=== PATIENT | female | born 1990 | race Caucasian/White ===

== ENCOUNTER 2024-04-18 05:40 | Inpatient (IN) ==
--- NOTE | 2024-04-06 11:59 | Anesthesiology Consultation ---
Date of Service April 06, 2024 Assessment & Plan (1) Encounter for pre-operative examination: Infectious disease screening: Per assessment on 04/06/24: No known infectious disease contacts or current infectious disease symptoms. No noted recent Covid positive test result. Chart Review Chart Review: entry level accountant initiated History Surgery Operation Date: 04/18/24 08:45 Proposed Procedures p Section in LD (Delivery of Baby through Abdominal Incision ) - Mckenzie Hernandez MD, FACOG Height/Weight Height: 5 ft 11 in Weight: 90.718 kg Allergies Allergy/AdvReac Type Severity Reaction Status Date / Time No Known Allergies Allergy Verified 04/06/24 11:17 Medications Home Medications Medication Instructions Recorded Confirmed Last Taken insulin lispro 100 unit/mL 20 unit subcut QAM 10/18/21 04/06/24 03/25/22 subcutaneous pen (Humalog KwikPen (U-100) Insulin) acetone (urine) test (Ketostix #25 ea 06/23/22 04/01/24 Unknown strips) omalizumab 150 mg/mL subcutaneous 300 mg (2 mL) subcut .COMPLEX #2 mL 04/22/23 04/06/24 Unknown syringe (Xolair) Omnipod 5 G6 Intro Kit (Gen 5) #1 ea 05/15/23 04/01/24 Unknown subcutaneous cartridge with controller (insulin pump cart,auto,BT-cntr) Omnipod 5 G6 Intro Kit (Gen 5) #1 ea 05/15/23 04/01/24 Unknown subcutaneous cartridge with controller (insulin pump cart,auto,BT-cntr) docosahexaenoic acid 200 mg 1 mg PO QAM 09/01/23 04/06/24 10/27/23 capsule ( DHA) aspirin 81 mg capsule 81 mg PO QAM 10/23/23 04/06/24 10/27/23 insulin lispro 100 unit/mL See Rx Instructions subcut 12/25/23 04/06/24 Unknown subcutaneous solution (Humalog CONTINOUS #100 mL U-100 Insulin) Omnipod 5 G6 Pods (Gen 5) (insulin #45 ea 12/31/23 04/01/24 Unknown pump cart,automated,BT) Dexcom G6 Sensor (blood-glucose #9 ea 01/22/24 04/01/24 Unknown sensor) Dexcom G6 Transmitter #1 ea 01/22/24 04/01/24 Unknown (blood-glucose transmitter) insulin glargine 100 unit/mL (3 25 unit (0.25 mL) subcut QPM #15 mL 01/22/24 04/06/24 Unknown mL) subcutaneous pen (Lantus Solostar U-100 Insulin) pen needle, diabetic 32 gauge x #100 ea 01/28/24 04/01/24 Unknown 5/32" (BD Ultra-Fine Melly Pen Needle) cetirizine 10 mg capsule (Zyrtec) 10 mg PO QID hives 04/06/24 04/06/24 Unknown Past Medical History Medical History Chronic idiopathic urticaria Reason for Zyrtec qid + Xolair Diabetes mellitus type 1 Dyslipidemia History of epilepsy Childhood Seizure hx ages 9-14 Hx of hepatitis Type A, no further details per PAT RN interview Insulin pump in place Past Family History Family History Father Hypertension Other No family history of adverse response to anesthesia Denies family history of Ovarian cancer Breast cancer Colorectal cancer Past Surgical History Surgical History H/O wisdom tooth extraction History of tonsillectomy Hx of oral surgery (10/28/23) Left Lower Lip Excision Large Mucocele and Ulcer Social History Smoking Status: Never smoker Do You Dip or Chew Tobacco: No Hx Alcohol Use: No Alcohol type: wine substance use type: does not use Lab Results Anesthesia Preop Results Results Anesthesia Widget: Hgb 12.5 g/dl (12.0-16.0) 02/10/24 Hct 36.2 % (37.0-47.0) L 02/10/24 TSH 0.757 uIu/ml (0.300-4.500) 02/19/24 HA1c 5.8 % (4.5-5.6) H 02/19/24 Urine Color Yellow 02/10/24 Urine Appearance Clear (Clear) 02/10/24 Urine pH 7.0 (4.5-7.5) 02/10/24 Urine Specific [place] 1.006 (1.000-1.030) 02/10/24 Urine Protein Negative (Negative) 02/10/24 Urine Glucose (UA) Negative (Negative) 02/10/24 Urine Ketones Negative (Negative) 02/10/24 Urine Blood Negative (Negative) 02/10/24 Urine Nitrite Negative (Negative) 02/10/24 Urine Bilirubin Negative (Negative) 02/10/24 Urine Urobilinogen Negative (Negative) 02/10/24 Urine Leukocyte Esterase Negative (Negative) 02/10/24 Testing Electrocardiogram Date: 11/13/23 Findings: + NSR @ (70)
--- NOTE | 2024-04-15 09:35 | History & Physical Report ---
Date of Service April 15, 2024 Assessment & Plan (1) with 39 completed weeks gestation: (2) Breech presentation: (3) Type 1 diabetes mellitus affecting , antepartum: Plan STill breech. Plan primary c/s. The risks of surgery were discussed with the patient including the risks of anesthesia, bleeding requiring transfusion, infection, poor wound healing, urinary retention, damage to surrounding structures including bowels, bladder, vessels, nerves and ureters that may require further surgery, hospitalization or intervention, injury to baby. The other risks of any surgery were discussed including heart attack, blood clots, stroke or . Consent reviewed and signed. Questions asked and answered. Surgery planned for Wednesday 04/18. History of Present Illness Chief Complaint: breech Primary Care Provider: Ester Fiore Patient is a 34yowf at 39 0/7 weeks who presents for primary c/s for breech presentation. She feels well. NO labor sx. Goof fm. STill breech when in the office on Thursday for consenting visit. Visit ASPEN Calculator Estimated Delivery Date Method Current WG Current Estimate 04/25/24 LMP (Certain) 37w 4d Other Estimates 04/25/24 Ultrasound #1 37w 4d and Delivery Plans DM Protocol - Type 1 *Baby ASA daily, start 12-28wks, continue until del *Ophthalmology consult *Dietary consult *Qmonthly urine cultures * [id number] 02/17/24---normal *Twice weekly NST's @32 or 34wks *Serial Growth US starting 28wks *EKG (Cardio x4287) - wnl *Deliver by EDC *Baseline 24hr urine and qmonth---03/03 <240 2.7cm TEX fibroid at anatomy -recheck 32 wks BREECH PRESENTATION C/S SCHEDULED FOR 04/18/[address] ROSE OB Labs: Blood Type B Positive 10/15/23 Antibody Screen NEGATIVE 10/15/23 Hemoglobin 12.5 g/dl (12.0-16.0) 02/10/24 Hematocrit 36.2 % (37.0-47.0) L 02/10/24 Mean Corpuscular Volume 84.3 fL (80.0-100.0) 09/14/23 Platelet Count 220 K/uL (130-400) 09/14/23 Rubella IgG Antibody Immune (Immune) 10/15/23 Rapid Plasma Reagin Nonreactive (Nonreactive) 10/15/23 Hepatitis B Surface Antigen. NON-REACTIVE (NON-REACTIVE) 09/14/23 Hepatitis C Antibody (EIA) NON-REACTIVE (NON-REACTIVE) 10/15/23 HIV (1&2) Ag and Ab Confirmation NON-REACTIVE (NON-REACTIVE) 10/15/23 Maternal Serum Alpha Fetoprotein 35.0 ng/mL 11/13/23 OB Optional Labs: Chlamydia trachomatis RNA Not Detected (NotDetected) 09/14/23 Neisseria gonorrhoeae RNA Not Detected (NotDetected) 09/14/23 Thyroid Stimulating Hormone (TSH) 0.757 uIu/ml (0.300-4.500) 02/19/24 Alpha Fetoprotein Triple Screen SEE NOTE 11/13/23 Labs Reviewed: low risk cfdna - sln afp neg gbs neg Allergies Allergy/AdvReac Type Severity Reaction Status Date / Time No Known Allergies Allergy Verified 04/15/24 10:53 Home Medications Medication Instructions Recorded Confirmed Type insulin lispro 100 unit/mL 20 unit subcut QAM 10/18/21 04/15/24 History subcutaneous pen (Humalog KwikPen (U-100) Insulin) acetone (urine) test (Ketostix #25 ea 06/23/22 04/15/24 Rx strips) omalizumab 150 mg/mL subcutaneous 300 mg (2 mL) subcut .COMPLEX #2 mL 04/22/23 04/15/24 Rx syringe (Xolair) Omnipod 5 G6 Intro Kit (Gen 5) #1 ea 05/15/23 04/15/24 Rx subcutaneous cartridge with controller (insulin pump cart,auto,BT-cntr) Omnipod 5 G6 Intro Kit (Gen 5) #1 ea 05/15/23 04/15/24 Rx subcutaneous cartridge with controller (insulin pump cart,auto,BT-cntr) docosahexaenoic acid 200 mg 1 mg PO QAM 09/01/23 04/15/24 History capsule ( DHA) aspirin 81 mg capsule 81 mg PO QAM 10/23/23 04/15/24 History insulin lispro 100 unit/mL See Rx Instructions subcut 12/25/23 04/15/24 Rx subcutaneous solution (Humalog CONTINOUS #100 mL U-100 Insulin) Omnipod 5 G6 Pods (Gen 5) (insulin #45 ea 12/31/23 04/15/24 Rx pump cart,automated,BT) Dexcom G6 Sensor (blood-glucose #9 ea 01/22/24 04/15/24 Rx sensor) Dexcom G6 Transmitter #1 ea 01/22/24 04/15/24 Rx (blood-glucose transmitter) insulin glargine 100 unit/mL (3 25 unit (0.25 mL) subcut QPM #15 mL 01/22/24 04/15/24 Rx mL) subcutaneous pen (Lantus Solostar U-100 Insulin) pen needle, diabetic 32 gauge x #100 ea 01/28/24 04/15/24 Rx " (BD Ultra-Fine Melly Pen Needle) cetirizine 10 mg capsule (Zyrtec) 10 mg PO QID hives 04/06/24 04/15/24 History Patient History Medical History Hx of hepatitis Type A, no further details per PAT RN interview Chronic idiopathic urticaria Reason for Zyrtec qid + Xolair Diabetes mellitus type 1 Dyslipidemia History of epilepsy Childhood Seizure hx ages 10-[address] Surgical History Hx of oral surgery (10/28/23) Left Lower Lip Excision Large Mucocele and Ulcer History of tonsillectomy H/O wisdom tooth extraction Family History Father Hypertension Other No family history of adverse response to anesthesia Denies family history of Ovarian cancer Breast cancer Colorectal cancer Social History Smoking Status: Never smoker Second Hand Exposure: Yes (in the past); Do You Dip or Chew Tobacco: No; Hx Alcohol Use: No Preferred Language: French Communication Ability: Effective Furnace Clerk Required: No Beliefs That Will Affect Care: None marital status: marital status details: Josemanuel Morel (34) [phone] Current Living Situation: Spouse Current Living Situation Comment: lives with spouse, dog current occupational status: employed current occupation: 2 [employer]-works from home Feels Safe at Home: Yes Diet: vegetarian during the past year weight has: remained stable Assistive Devices: None Physical Exam Constitutional: WD/WN, vitals as above Gastrointestinal (Abdomen): soft, gravid, nt Psychiatric: A+Ox3, euthymic affect Coding Level of Care Code None Diagnoses with 39 completed weeks gestation Z3A.39 Breech presentation, single or unspecified fetus O32.1XX0 Fetus number: single or unspecified fetus Type 1 diabetes mellitus affecting , antepartum O24.019 (2) Breech presentation Fetus number: single or unspecified fetus Qualified Code(s): O32.1XX0 - Maternal care for breech presentation, not applicable or unspecified
[~2024-04-18 05:40] MED LIST: ceFAZolin 2000MG 2,000 MG/15 ML SYR IV ONE
[2024-04-18] MEDS ORDERED: LACTATED RINGER'S 1,000 ML IV SCH ×2 (05:45→08:45)
[2024-04-18 06:07] LABS: Basophils # (auto) 0.02 K/uL (0.00-0.20); Basophils % (auto) 0.2 %; Eosinophils # (auto) 0.09 K/uL (0.00-0.50); Hematocrit (blood only) 33.8 % (37.0-47.0); Hemoglobin 11.7 g/dl (12.0-16.0); Immature Granulocytes # (auto) 0.04 K/uL (0.01-0.20); Immature Granulocytes % (auto) 0.4 %; Lymphocytes # (auto) 1.96 K/uL (1.20-3.40); Lymphocytes % (auto) 20.8 %; Mean Corpuscular Hemoglobin 29.2 pg (25.0-34.0); Mean Corpuscular Hgb Conc 34.6 g/dL (32.0-36.0); Mean Corpuscular Volume 84.3 fL (80.0-100.0); Mean Platelet Volume 10.7 fL (9.4-12.4); Monocytes # (auto) 0.35 K/uL (0.11-0.59); Monocytes % (auto) 3.7 %; Neutrophils # (auto) 6.96 K/uL (1.40-6.50); Neutrophils % (auto) 73.9 %; Platelet Count 178 K/uL (130-400); RDW Coefficient of Variation 13.2 % (11.5-14.5); RDW Standard Deviation 40.3 fL (36.4-46.3); Red Blood Count 4.01 M/uL (4.20-5.40); White Blood Count 9.42 K/ul (4.8-10.8)
--- NOTE | 2024-04-18 07:17 | History & Physical Bridge Note ---
Date of Service April 18, 2024 History & Physical Bridge Note I have examined the patient, reviewed the History & Physical and in the interval since the performance of the History & Physical I have noted the following changes of clinical significance: no changes noted, scanned this am and still breech.
[2024-04-18] MEDS ORDERED: MoRPHine SULFATE PF 1 MG/ML 10 ML AMP/VIAL ONE (07:20)
[2024-04-18] MEDS: ceFAZolin 2000MG 2,000 MG/15 ML SYR IV SCH (07:24)
[2024-04-18] MEDS ORDERED: KETOROLAC 30 MG/ML VIAL ONE (08:05)
[2024-04-18] MEDS ORDERED: ONDANSETRON INJ 2 MG/ML 2 ML VIAL ONE (08:05)
[2024-04-18] MEDS ORDERED: PHENYLEPHRINE HCL 25 MG/250 ML NSS IV ONE (08:05)
[2024-04-18] MEDS ORDERED: OXYTOCIN 10 UNITS/ML VIAL ONE (08:05)
[2024-04-18 08:23] LABS: Base Excess Cord Venous Blood -1.1 mEq/L (-7.7-1.9); Cord Venous Blood HCO3 25 mmol/L (18.4-26.8); Cord Venous Blood PCO2 48 mmHg (30.4-57.2); Cord Venous Blood PO2 24 mmHg (14.1-43.3); Cord Venous Blood pH 7.33 (7.20-7.44); O2 Saturation Cord Venous Bld < 60.0 % (<68)
[2024-04-18 08:24] LABS: Base Excess Cord Arterial Bld -3.2 mEq/L (-9-1.8); CO2 Cord Arterial Blood 77 mmHg (39.1-73.5); HCO3 Cord Arterial Blood 27 mmol/L (19.7-28.5); Oxygen Sat Cord Arterial Blood < 60.0 % (<60); PO2 Cord Arterial Blood < 20 mmHg (4.1-31.7); pH Cord Arterial Blood 7.16 (7.1-7.38)
--- NOTE | 2024-04-18 08:35 | Operative Report ---
PG Post Operative Report Pre & Post Diagnosis Operation Date: 04/18/24 07:30 Pre-Op Diagnosis: at 39 weeks, BREECH PRESENTATION Post-Op Diagnosis: at 39 weeks, BREECH PRESENTATION I identified the patient and participated in the time-out.: Yes Procedure Operation Date: 04/18/24 07:30 Actual Procedures p Primary low transverse Section; delivery of live female at 0755 - Mckenzie Hernandez MD, FACOG Surgeon Mckenzie Hernandez MD, FACOG Form Setter Lucy Cochran, MS 2 Estimated Blood Loss 880 Findings Consistent with Post-Op Diagnosis normal appearing uterus, tubes and ovaries, fetus in sharon breech presentation. Fluids 1200cc ivf 450cc clear yellow urine Specimens none Drains Capps Anesthesia Type Spinal Complications none Disposition Accompanied Patient To Recovery: Yes Disposition: L&D Indications Patient is a 34yowf with breech presentation at term. Description of Procedure The patient was taken to the operating room where she was identified verbally and by bracelet. She was seated on the operating table where a spinal anesthetic was placed by anesthesia. She was then placed in the supine position with a leftward tilt. A Capps catheter was placed sterilely. the patient was prepped and draped in a normal standard fashion. the anesthetic was tested and found to be adequate. A time-out was held, identifying correct patient, procedure, positioning and preoperative antibiotics. There were no concerns. A Pfannenstiel skin incision was made with a knife and taken down to the underlying layer of fascia with the knife and Bovie electrocautery. Bleeding was attended to with the Bovie. The fascia was incised in the midline with the knife and taken out laterally with scissors. The superior edge of the fascial incision was grasped, elevated and the underlying layer of rectus muscle was taken off bluntly and with scissors. In a similar fashion, the inferior edge of the fascial incision was grasped, elevated and the underlying layer of rectus muscle was taken off bluntly and with scissors. The muscles were bluntly in the midline. The peritoneum was entered bluntly. The incision was then stretched. The bladder blade was placed. The vesicouterine peritoneum was identified, entered with scissors and taken out laterally with scissors. The bladder flap was created digitally A hysterotomy incision was scored with a knife and the incision was stretched superiorly and inferiorly with the dictaphone operator's fingers. The operators hand was placed into the incision and the buttocks were partially delivered. We had difficulty delivering them and so the bandage scissors were used to increase the size of the incision. then the buttocks were delivered. The legs were then delivered. The arms were then delivered by sweeping across the body. The head was then delivered by fundal pressure. No nuchal cord. The nose and mouth were bulb suctioned. The cord was clamped and cut and the was then handed off to the awaiting front office manager for drying and attention. Cord blood and segment were obtained. The placenta was expressed. The uterus was exteriorized and cleared of all clot and debris with moistened laparotomy sponges. The hysterotomy incision was repaired in two layers, the first in a running locked layer, the second in an imbricating layer. Hemostasis was noted to be good. Posterior cul-de-sac was irrigated and cleared of all clot and debris. The hysterotomy incision was again inspected and found to be hemostatic. the uterus was reinteriorized. Hysterotomy incision was again inspected and two figure of eight sutures were needed for hemostasis . It was then noted to be excellent. The fascia was then reapproximated with 0 Vicryl starting at the edges and meeting in the midline. The subcuticular tissues were copiously irrigated and bleeding was attended to with cautery. The skin was then closed with 4-0 Vicryl in a subcuticular fashion. All sponge , lap and needle counts were correct x 2. The patient was then taken to recovery in stable condition. I attest to the content of the Intraoperative Record and any orders documented therein. Any exceptions are noted below. OB Procedure Charges 69538
[2024-04-18] MEDS ORDERED: NALOXONE HCL 0.4 MG/1 ML VIAL/CARP IV PRN (08:37)
[2024-04-18] MEDS ORDERED: ePHEDrine sulfate 50 MG/ML AMP IV PRN (08:37)
[2024-04-18] MEDS ORDERED: HYDROCORTISONE ACETATE 25 MG SUPP PR PRN (08:37)
[2024-04-18] MEDS ORDERED: diphenhydrAMINE 50 MG/ML VIAL IV PRN ×2 (08:37)
[2024-04-18] MEDS ORDERED: DIPHTHER/TETAN/PERTUS Vaccine (Tdap, Adol/Adult) 0.5mL IM ONE (08:37)
[2024-04-18] MEDS ORDERED: NALOXONE HCL 1 MG in SODIUM CHLORIDE 0.9% 1,000 ML IV PRN (08:37)
[2024-04-18] MEDS ORDERED: NALOXONE HCL 0.08 MG in SYRINGE 1.8 ML IV PRN (08:37)
[2024-04-18] MEDS ORDERED: ONDANSETRON INJ 2 MG/ML 2 ML VIAL IV PRN (08:37)
[2024-04-18] MEDS ORDERED: NALBUPHINE HCL 5 MG in SYRINGE 0 ML IV PRN (08:37)
[2024-04-18] MEDS ORDERED: PROMETHAZINE HCL 25 MG in SODIUM CHLORIDE 0.9% 50 ML IV PRN (08:37)
[2024-04-18] MEDS ORDERED: BENZOCAINE 20% SPRY 85 APPLN/85 GM CAN EXT PRN (08:37)
[2024-04-18] MEDS ORDERED: MEPERIDINE HCL 50 MG/ML CARP IV PRN (08:37)
[2024-04-18] MEDS ORDERED: diphenhydrAMINE Capsule 25 MG CAP PO PRN (08:37)
[2024-04-18] MEDS ORDERED: SENNA 8.6 MG TAB PO PRN (08:37)
[2024-04-18] MEDS ORDERED: LACTATED RINGER'S 500 ML IV PRN (08:37)
[2024-04-18] MEDS ORDERED: MAGNESIUM HYDROXIDE SUSP 30 ML UDC PO PRN (08:37)
[2024-04-18] MEDS ORDERED: MEPERIDINE HCL 25 MG/ML CARP/VIAL IV PRN (08:37)
[2024-04-18] MEDS ORDERED: HYDROmorphone INJ 0.5 MG/0.5 ML SYR IV PRN (08:37)
[2024-04-18] MEDS ORDERED: MoRPHine SULFATE 2 MG/ML CARP IV PRN (08:37)
[2024-04-18] MEDS ORDERED: NO NARCOTICS OR SEDATIVES SCH (08:45)
[2024-04-18] MEDS ORDERED: DC INTRASPINAL MORPHINE SCH (08:45)
[2024-04-18] MEDS ORDERED: NON-FORMULARY MEDICATION (Blood-Glucose Sensor [Dexcom G6 Sensor] device) SCH (08:52)
[2024-04-18] MEDS ORDERED: NON-FORMULARY MEDICATION (Insulin Lispro [Humalog U-100 Insulin] 100 unit/mL solution) SQ SCH (08:52)
[2024-04-18] MEDS ORDERED: [UNRECOGNIZED DRUG - OTHER] SCH (08:52)
[2024-04-18] MEDS ORDERED: INSULIN PUMP CART AUTOMATED BT SCH (08:52)
[2024-04-18] MEDS ORDERED: [UNRECOGNIZED DRUG - OTHER] SCH ×2 (08:52)
[2024-04-18] MEDS ORDERED: NON-FORMULARY MEDICATION (Insulin Lispro [Humalog Kwikpen Insulin] 100 unit/mL insulin pen SQ SCH (09:00)
[2024-04-18] MEDS ORDERED: INSULIN ASPART 100 UNITS/ML VIAL SC PRN (09:30)
[2024-04-18] MEDS ORDERED: Continuous Glucose Monitor SCH (09:30)
--- NOTE | 2024-04-18 10:07 | Anesthesiology Progress Note ---
Date of Service April 18, 2024 Anesthesia Post Procedure Vital Signs Vital Signs: Temp Pulse Resp BP Pulse Ox 04/18/24 10:00 64 98 04/18/24 09:59 63 117/74 04/18/24 09:55 69 98 04/18/24 09:50 69 98 04/18/24 09:49 68 117/73 04/18/24 09:45 68 98 04/18/24 09:40 74 97 04/18/24 09:39 68 112/75 04/18/24 09:35 70 98 04/18/24 09:30 18 04/18/24 09:30 18 04/18/24 09:30 70 97 04/18/24 09:29 68 122/74 04/18/24 09:25 68 97 04/18/24 09:21 18 04/18/24 09:20 67 97 04/18/24 09:19 65 114/57 L 04/18/24 09:15 70 97 04/18/24 09:10 18 04/18/24 09:10 71 98 04/18/24 09:09 72 116/71 04/18/24 09:05 67 98 04/18/24 09:00 18 04/18/24 09:00 64 98 04/18/24 08:59 68 108/67 04/18/24 08:55 64 98 04/18/24 08:50 20 04/18/24 08:50 62 115/61 97 04/18/24 08:45 73 97 04/18/24 08:40 18 04/18/24 08:40 69 98 04/18/24 08:39 66 100/56 L 04/18/24 08:35 70 85 L 04/18/24 08:34 66 94 04/18/24 08:30 36.5 C 18 04/18/24 08:29 95 04/18/24 08:29 62 04/18/24 08:29 61 97/54 L 04/18/24 06:07 95 H 129/70 04/18/24 06:00 36.7 C 04/18/24 05:54 36.7 C 18 Transfer of Care Handoff Completed per policy Notes Mental Status: alert / awake / arousable Nausea / Vomiting: adequately controlled Pain: adequately controlled Airway Patency, RR, SpO2: stable & adequate BP & HR: stable & adequate Hydration State: stable & adequate Neuraxial Anesthesia: was administered and sensory block is resolving Anesthetic Complications: no major complications apparent and Pt Satisfied with anesthetic care
[2024-04-18] MEDS: OXYTOCIN 20 UNITS/LR 1,002 ML IV SCH (10:14)
[2024-04-18] MEDS: CITRIC ACID/SODIUM CITRATE 15 ML UDC PO SCH (10:51)
[2024-04-18] MEDS ORDERED: INSULIN, Rapid-Acting PUMP SCH (11:30)
[2024-04-18] MEDS: ONDANSETRON INJ 2 MG/ML 2 ML VIAL IV PRN (11:46)
[2024-04-18] MEDS: SIMETHICONE 80 MG CHEW PO SCH (13:16)
[2024-04-18] MEDS: PROMETHAZINE HCL 6.25 MG in SODIUM CHLORIDE 0.9% 50 ML IV PRN (13:42)
[2024-04-18] MEDS: SODIUM CHLORIDE 0.9% 1,000 ML IV SCH (18:09)
[2024-04-18] MEDS: MoRPHine SULFATE PF 1 MG/ML 10 ML AMP/VIAL INT SPINAL ONE (18:09)
[2024-04-18] MEDS: KETOROLAC 30 MG/ML VIAL IV PRN (18:37)
[2024-04-18] MEDS ORDERED: LANTUS PER UNIT CHARGE SC PRN (21:00)
[2024-04-18] MEDS: DOCUSATE SODIUM 100 MG CAP PO SCH (21:52)
[2024-04-19] MEDS ORDERED: KETOROLAC 30 MG/ML VIAL IV PRN (02:37)
[2024-04-19] MEDS: oxyCODONE/ACETAMINOPHEN 5mg/325mg TAB PO PRN (05:46)
--- NOTE | 2024-04-19 05:50 | Obstetrical Progress Note ---
Date of Service April 19, 2024 Assessment & Plan (1) Encounter for care and examination after delivery: Plan 34 y/o POD #1 s/p feels well today Encourage ambulation Vial signs reviewed Pain control Encourage Rubella immune, BGT: B+ Continue routine post care Admission and Anticipated Discharge Date Admission Date: April 18, 2024 Supervising Physician Co-Signing Physician Notes Resident Physician Supervision Note: I interviewed and examined the patient. Discussed with Dr. Lynn and agree with findings and plan as documented in the note. Any exceptions or clarifications are listed here: Doing well pod #1. Kendall just came out, has not voided. Pain controlled. minimal ambulation. ff. incision c/d/i. Routine care. Documented By: Mckenzie Hernandez MD, FACOG Subjective 34 yo POD#1 s/p due to breech presentation Ambulation: ambulating normally Voiding: kendall discontinue this morning, will do voiding trial today Passing Gas:: Yes Diet Tolerance:: regular diet Lochia:: Small Feeding Type: breast feeding Current Pain Level: moderate, control with pain meds Resting comfortably this AM in NAD. Denies DORADO, CP, SOB, N/V/D, LE pain/swelling. Review of Systems Review of Systems: as per hpi Physical Exam Physical Exam: General: patient resting comfortably, NAD, non-toxic in appearance, AA&O x 4, answers questions appropriately. Heart: +S1/S2, regular, no m/r/g Lungs: equal air entry bilaterally, no rales/rhonchi/wheezes Abd: +BS, soft, NT/ND, uterine fundus firm at umbilicus, incision clean and dry, no signs of infection Ext: warm, no clubbing/cyanosis or edema, Janeen's neg. Neuro: nonfocal, patient AA&O x 4, speech intact, no facial droop, moving all extremities on command. Results & Data Vital Signs (Past 12 Hours) Vital Signs Temp Pulse Resp BP Pulse Ox O2 Del Method 04/19/24 04:00 36.6 C 72 14 109/62 95 Room Air 04/19/24 02:00 16 95 04/19/24 01:00 16 95 04/19/24 00:00 14 94 04/18/24 23:45 36.7 C 75 14 108/66 96 Room Air 04/18/24 23:21 14 98 04/18/24 22:00 14 98 04/18/24 21:00 16 97 04/18/24 20:00 14 96 04/18/24 19:20 16 96 04/18/24 19:20 36.7 C 69 16 110/70 96 Room Air 04/18/24 19:07 20 98 04/18/24 18:09 20 96 Resident Activity Tracking Resident Involvement: Resident Care Provided Care Provided: OB Delivery
[2024-04-19 07:11] LABS: Basophils # (auto) 0.02 K/uL (0.00-0.20); Basophils % (auto) 0.2 %; Eosinophils # (auto) 0.11 K/uL (0.00-0.50); Hematocrit (blood only) 32.4 % (37.0-47.0); Hemoglobin 11.4 g/dl (12.0-16.0); Immature Granulocytes # (auto) 0.05 K/uL (0.01-0.20); Immature Granulocytes % (auto) 0.5 %; Lymphocytes % (auto) 10.4 %; Mean Corpuscular Hemoglobin 29.9 pg (25.0-34.0); Mean Corpuscular Hgb Conc 35.2 g/dL (32.0-36.0); Mean Platelet Volume 10.1 fL (9.4-12.4); Monocytes # (auto) 0.25 K/uL (0.11-0.59); Monocytes % (auto) 2.4 %; Neutrophils # (auto) 9.06 K/uL (1.40-6.50); Neutrophils % (auto) 85.5 %; Platelet Count 162 K/uL (130-400); RDW Standard Deviation 39.5 fL (36.4-46.3); Red Blood Count 3.81 M/uL (4.20-5.40); White Blood Count 10.59 K/ul (4.8-10.8)
[2024-04-19] MEDS: FERROUS SULFATE 325 MG TAB PO SCH (09:30)
[2024-04-19] MEDS: IBUPROFEN 600 MG TAB PO PRN (09:31)
[2024-04-19] MEDS: PRENATAL VITAMIN 1 TAB PO SCH (09:31)
[2024-04-19] MEDS: bisacodyL 5 MG TABEC PO SCH (19:51)
[2024-04-20 06:38] LABS: Hematocrit (blood only) 32.4 % (37.0-47.0); Hemoglobin 11.3 g/dl (12.0-16.0)
--- NOTE | 2024-04-20 06:46 | Obstetrical Progress Note ---
Date of Service April 20, 2024 Assessment & Plan (1) Encounter for care and examination after delivery: Plan 34 y/o POD #2 s/p feels well today Encourage ambulation Vial signs reviewed Pain control Encourage Rubella immune, BGT: B+ Continue routine post care Admission and Anticipated Discharge Date Admission Date: April 18, 2024 Supervising Physician Co-Signing Physician Notes Patient seen with resident and agree with the above findings and plan. Doing well and stable for discharge Subjective 34 yo POD#2 s/p due to breech presentation Ambulation: ambulating normally Voiding: no voiding problems Passing Gas:: Yes Diet Tolerance:: regular diet Lochia:: Small Feeding Type: breast feeding Current Pain Level: moderate, control with pain meds Resting comfortably this AM in NAD. Denies DORADO, CP, SOB, N/V/D, LE pain/swelling. Review of Systems Review of Systems: as per hpi Physical Exam Physical Exam: General: patient resting comfortably, NAD, non-toxic in appearance, AA&O x 4, answers questions appropriately. Heart: +S1/S2, regular, no m/r/g Lungs: equal air entry bilaterally, no rales/rhonchi/wheezes Abd: +BS, soft, NT/ND, uterine fundus firm at umbilicus, incision clean and dry, no signs of infection Ext: warm, no clubbing/cyanosis or edema, Janeen's neg. Neuro: nonfocal, patient AA&O x 4, speech intact, no facial droop, moving all extremities on command. Results & Data Vital Signs (Past 12 Hours) Vital Signs Temp Pulse Resp BP Pulse Ox O2 Del Method 04/20/24 01:15 36.8 C 75 18 105/65 97 Room Air 04/19/24 19:45 Room Air 04/19/24 19:45 36.8 C 71 18 110/72 98 Room Air Resident Activity Tracking Resident Involvement: Resident Care Provided Care Provided: OB Delivery
[2024-04-20] MEDS: bisacodyL 10 MG SUPP PR PRN (08:23)
== END 2024-04-20 16:00 | disposition home or self-care (01) | DRG 786 ==
LOC: 4S1 05:40 → EDSTATUS 08:45 → 4E2 11:22